=== PATIENT | female | born 1950 | race Caucasian/White ===

== ENCOUNTER 2016-11-05 05:59 | Outpatient (CLI) | payer MEDICARE, BC ==
[~2016-11-05] VITALS: Ht 167.6 cm; Wt 106.3 kg
--- NOTE | ~2016-11-05 | CATH ---
Cardiac Diagnostic Report Demographics Patient Name JOSEPH Strange Gender Female Date of 1950 Age 65 year(s) Patient Number [id number] Date of Study 11/05/2016 Visit Number [id number] Room Number G6399 [place] [id number] Ht 167.64 cm Wt 106.3 kg Referring Pradip Mendoza Hemanth AQUINO Primary Physician Physician Performing Melani Alcantar MD Secondary Physician Physician Diagnostic Melani Alcantar MD Assisting Physician Physician Interventional Physician Follow Up Manager Physician Findings and Conclusions Diagnostic Findings and Conclusion Nonobstructive CAD Normal LV function Diagnostic Recommendations Medical Therapy Procedure Description The patient was brought to the diagnostic cardiac catheterization-EP laboratory in the fasting, non-sedated state. Informed consent was obtained in the written and verbal form after the risks and benefits were explained. The patient had no further questions and agreed to proceed. The planned puncture-incision site(s) were shaved and prepped with ChloraPrep and draped in the usual sterile manner. Conscious sedation, supplemental oxygen, and pain control medications were delivered by a registered nurse under physician guidance. Surface ECG rhythm, blood pressure measurement, and pulse oximetry were monitored throughout the procedure. Arterial access. The access site was infiltrated with lidocaine. The vessel was entered with the Seldinger technique. A sheath was advanced into the vessel and used for catheter placement. Selective left coronary angiography. A catheter was advanced into the left coronary vessel ostium under Fluoroscopic guidance. Contrast was injected by hand. Images were obtained in multiple projections. Selective right coronary angiography. A catheter was advanced into the right coronary vessel ostium under fluoroscopic guidance. Contrast was injected by hand. Images were obtained in multiple projections. Left heart catheterization with ventriculography. A catheter was advanced across the aortic valve to the left ventricle under fluoroscopic guidance. Resting hemodynamics were obtained. With the catheter at the left ventricular apex, contrast was injected. Images were obtained in CZECH projections. Post-ventriculography LV pressure was obtained. The catheter was gradually withdrawn into the aorta with continuous pressure recording. Arterial artery hemostasis was achieved. The patient was transferred to a regular nursing floor via cart accompanied by a nurse. The patient left the laboratory in stable condition. Diagnostic Cath Status: Elective Procedure Procedure Type Diagnostic procedure:Ventriculogram:, Left, Angiography:, Coronary Angios w/LHC Indications: Unstable angina and Shortness of breath. The procedure was explained in detail to the patient. Risks, complications and alternative treatments were reviewed. Written consent was obtained. Medications Reviewed with Patient prior to Procedure. Angiographic Findings Dominance: Right Cardiac Arteries and Lesion Findings LMCA: Normal (0% Stenosis).Large LAD: Normal (0% Stenosis).Large. Diagonal 1 is large and normal LCx: Normal (0% Stenosis).Nondominant, large and normal. OM 1 is small and okay. OM 2 is large and normal RCA: Normal (0% Stenosis).Dominant, large and normal. PL is medium and normal. PDA is medium and normal. Procedure Data Procedure Date Date: 11/05/2016Start: 08:06 AMEnd: 08:28 AM Entry Locations - Retrograde Percutaneous access was performed through the Right Femoral artery (Primary location). A 6 Fr sheath was inserted. Hemostasis was successfully obtained using Angio-Seal STS PLUS ([place]). Closure Comments: Deployed by Winnie INIGUEZ. Procedure Medications Order and Administration + + + +-------+ !Time !Medication !Dosage !Route ! + + + +-------+ !11/05/2016 08:04 AM !Zofran !4 mg !I.V. ! + + + +-------+ !11/05/2016 08:04 AM !Versed !1 mg !I.V. ! + + + +-------+ !11/05/2016 08:06 AM !Versed !0.5 mg !I.V. ! + + + +-------+ !11/05/2016 08:07 AM !Fentanyl !25 mcg !I.V. ! + + + +-------+ !11/05/2016 08:09 AM !Versed !0.5 mg !I.V. ! + + + +-------+ !11/05/2016 08:21 AM !Fentanyl !25 mcg !I.V. ! + + + +-------+ !11/05/2016 08:12 AM !Oxygen !2 l/min !NC ! + + + +-------+ Devices Used - A6 Fr. BS JL 3.5 Diag. Catheterwas used for:Left coronary angiography. - A6 Fr. BS JR 4 Diag. Catheterwas used for:Right coronary angiography. - A6 Fr. BS Angled Pigtail Diag. Catheterwas used for:Left ventriculography. Contrast Material - Isovue 19046 ml Fluoroscopy Time: Diagnostic: 2:18 minutes. Total: 2:18 minutes. Fluoroscopy Dose: Diagnostic: 672 mGy. Total: 672 mGy. Estimated Blood Loss: 4 ml. Medical History Performed Procedures and Imaging Results - Stress testing with SPECT MPIwas performed. Results were: Positive. Risk/Extent of ischemia was: Intermediate risk. Allergies - Penicillin. - Contrast. - Latex. - Other:(Levofloxacin). Risk Factors The patient risk factors include:peripheral arterial disease, cerebrovascular disease, hypertension, chronic lung disease, last creatinine: 1 mg/dl, creatinine clearance: 94.12 ml/min and dyslipidemia. Admission Data Admission Date: 11/05/2016 Admission Time: 05:59 AM Admit Source: Other Insurance Payors: Medicare. Admission Medications + +------+------+ + + + + !Medication !Dosage!Times !Last !Last !Administered !Comments ! ! ! !Per !Delivery !Delivery ! ! ! ! ! !Day !Date !Time ! ! ! + +------+------+ + + + + !ARB (any) ! ! ! ! !Yes ! ! + +------+------+ + + + + !Beta ! ! ! ! !Yes ! ! !Leonora ! ! ! ! ! ! ! !(any) ! ! ! ! ! ! ! + +------+------+ + + + + !Statin ! ! ! ! !Yes ! ! !(any) ! ! ! ! ! ! ! + +------+------+ + + + + Clinical Evaluation Leading to Procedure - The patient's CAD presentation was assessed as: Unstable angina. - The patient's anginal syndrome during the past two weeks was assessed as: Class III according to the [place] Cardiovascular [employer] Classification System (CCS). Anti-anginal medications were prescribed during the past two weeks. The medication is: Beta Blockers. 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 VA LV function assessed as:Normal. Ejection Fraction - 10/25/2016 - Method: Radionucleotide. EF%: 67. - Method: LV gram. EF%: 55. LVA Segment Contractility 1 - Normal 3 - Mild 5 - Severe 7 - Dyskinesis hypokinesis hypokinesis 2 - 4 - Moderate 6 - Akinesis 8 - Aneurysm Hypokinesis hypokinesis Hemodynamics Condition: Rest O2 Consumption: Estimated: 201.17Heart Rate: 72 bpm Pressures (mmHg) +-----+ + !Site !Pressure ! +-----+ + !AO !136/75 (103) ! +-----+ + !LV !138/-9 ! +-----+ + !LV !145/- ! +-----+ + !LV !140/-12 ! +-----+ + !LV !136/-12 ! +-----+ + !AO !137/70 (101) ! +-----+ + !LV !135/-3 ,28 ! +-----+ + Valve Gradients and Areas + +---------+---------+---------+ +---------+ + !Valve !Peak !Mean !Area !Index !Flow !Source ! + +---------+---------+---------+ +---------+ + !Aortic !0 !0 ! ! ! ! ! + +---------+---------+---------+ +---------+ + !Aortic !0 !0 ! ! ! ! ! + +---------+---------+---------+ +---------+ + Shunts Oxygen Values O2 Capacity 182.24 O2 Consumption 201.17 Discharge Data Discharge Date: 11/05/2016 Hospital Status: Outpatient Signatures dtt: Ortiz Polo (cardio) dtd: 11/05/16 0806 Physician Self Edit
[~2016-11-05 05:59] MED LIST: COUMADIN ** IA5 MG PO; COZAAR100 MG PO; CULTURELLE CAP1 EACH PO; FEOSOL325 MG PO; NORVASC5 MG PO; PRAVACHOL40 MG PO; PROTONIX40 MG PO; SENNA S TABLET1 EACH PO; TOPROL XL100 MG PO; TYLENOL EXTRA500 MG PO; ULTRAM50 MG PO; UROCIT-K 10ME1080 MG PO; XANAX0.25 MG PO; ZYLOPRIM300 MG PO
[2016-11-05] MEDS ORDERED: PREDNISONE50 MG PO (06:47)
[2016-11-05] MEDS ORDERED: BENADRYL50 MG PO (06:48)
[2016-11-05] MEDS ORDERED: PEPCID40 MG PO (06:49)
== END 2016-11-05 11:15 | disposition disaster alternative care site (69) ==
LOC: GPCU 05:59 → GPOC 05:59
DX: R07.89 Other chest pain (principal); I10 Essential (primary) hypertension; G47.33 Obstructive sleep apnea (adult) (pediatric)
CPT/HCPCS: C1760; J1644; J2001; J2250; J2405; J3010; J7030